=== PATIENT | female | born 1995 | race Native Hawaiian/Other Pacific Islander ===

== ENCOUNTER 2018-05-12 15:45 | Emergency (ER) | payer OTHER ==
[~2018-05-12] VITALS: Ht 157.5 cm; Wt 68.0 kg
[~2018-05-12 15:45] MED LIST: AMOX875T8 PO; COLD/ALLERG1 PO; FLUT0.05 NAS; LORA10TA3 PO; ORTHOTRICYCLIN PO; PYRIDIUM100 MG PO; TRIM800T12 PO
[2018-05-12 15:56] VITALS: TEMP 97.9
[2018-05-12 18:55] VITALS: BP 148/92
== END 2018-05-12 18:55 | disposition home or self-care (01) ==
LOC: ED 15:45
DX: K04.7 Periapical abscess without sinus (principal); K08.89 Other specified disorders of teeth and supporting structures
CPT/HCPCS: 99282

== ENCOUNTER 2019-08-26 11:00 | Emergency (ER) | payer OTHER ==
[~2019-08-26] VITALS: Ht 157.5 cm; Wt 54.4 kg
[2019-08-26 11:51] LABS: PLATELET COUNT 241 K/uL (152-353)
[2019-08-26 11:57] LABS: POTASSIUM 3.5 mmol/L (3.6-5.2)
[2019-08-26 13:05] VITALS: BP 119/77; TEMP 101
== END 2019-08-26 13:05 | disposition home or self-care (01) ==
LOC: ED 11:00
PROVIDERS: Emergency Medicine
DX: J11.1 Influenza due to unidentified influenza virus with other respiratory manifestations (principal); F17.210 Nicotine dependence, cigarettes, uncomplicated
CPT/HCPCS: 80053; 85027; 87502; 87651; 96360; 96375; 99284; J1885

== ENCOUNTER 2020-03-06 14:14 | Emergency (ER) | payer OTHER ==
[~2020-03-06] VITALS: Ht 157.5 cm; Wt 58.1 kg
[2020-03-06 15:28] VITALS: BP 111/85; TEMP 98.9
== END 2020-03-06 15:28 | disposition home or self-care (01) ==
LOC: ED 14:14
DX: K08.89 Other specified disorders of teeth and supporting structures (principal)
CPT/HCPCS: 96372; 99283; J0696; J1885

== ENCOUNTER 2020-06-23 17:40 | Emergency (ER) | payer OTHER ==
[~2020-06-23] VITALS: Ht 160 cm; Wt 54.4 kg
[2020-06-23 17:56] VITALS: BP 120/81; TEMP 98.5
== END 2020-06-23 18:55 | disposition home or self-care (01) ==
LOC: ED 17:40
DX: K04.7 Periapical abscess without sinus (principal)
CPT/HCPCS: 96372; 99283; J0696; J1885